=== PATIENT | male | born 1955 | race Caucasian/White ===

== ENCOUNTER 2017-01-09 09:14 | Emergency (ER) | payer SELFPAY ==
[~2017-01-09] VITALS: Ht 185.4 cm; Wt 72.6 kg
[2017-01-09 09:41] VITALS: BP 132/90
[2017-01-09] MEDS ORDERED: TETANUS-DIPTH-ACEL PERTUSSIS 0.5ML SYRG IM ONE (10:30)
[2017-01-09] MEDS ORDERED: NEOMYCIN-BACITRACIN-POLYM UNITDOSE PKG TOP OINT TOP ONE (10:30)
== END 2017-01-09 10:41 | disposition home or self-care (01) ==
LOC: ER 09:14
DX: S60.311A Abrasion of right thumb, initial encounter (principal); L08.9 Local infection of the skin and subcutaneous tissue, unspecified; X58.XXXA Exposure to other specified factors, initial encounter; Y93.89 Activity, other specified; Y92.89 Other specified places as the place of occurrence of the external cause; Y99.0 Civilian activity done for income or pay
CPT/HCPCS: 90471; 90715

== ENCOUNTER 2017-01-30 13:05 | Emergency (ER) | payer MEDICAID ==
[~2017-01-30] VITALS: Ht 185.4 cm; Wt 77.1 kg
[2017-01-30 13:16] VITALS: BP 106/58
[2017-01-30] MEDS ORDERED: cefTRIAXone SOD 1,000 MG VL IM ONE (15:30)
[2017-01-30] MEDS ORDERED: KETOROLAC TROMETH 60MG/2ML VIAL IM ONE (15:30)
[2017-01-30] MEDS ORDERED: SILVER SULFADIAZINE 1 % TOPICAL CREAM 50GM TOP ONE (15:30)
[2017-01-30] MEDS ORDERED: LIDOCAINE 2%HCL (LOCAL ANESTH.) INJ 20ML MDV ONE (15:37)
== END 2017-01-30 16:39 | disposition home or self-care (01) ==
LOC: ER 13:05
DX: T23.251A Burn of second degree of right palm, initial encounter (principal); L02.415 Cutaneous abscess of right lower limb; X12.XXXA Contact with other hot fluids, initial encounter; Y93.89 Activity, other specified; Y92.89 Other specified places as the place of occurrence of the external cause; Y99.8 Other external cause status
CPT/HCPCS: 10060; 16020; 73590; 96372; 99284; J0696; J1885

== ENCOUNTER 2017-02-02 13:46 | Emergency (ER) | payer MEDICAID ==
[~2017-02-02] VITALS: Ht 185.4 cm; Wt 77.1 kg
[2017-02-02 14:57] VITALS: BP 128/74
[2017-02-02] MEDS ORDERED: cefTRIAXone SOD 1,000 MG VL IM ONE (15:00)
== END 2017-02-02 15:16 | disposition home or self-care (01) ==
LOC: ER 13:50
DX: T23.101D Burn of first degree of right hand, unspecified site, subsequent encounter (principal); X58.XXXD Exposure to other specified factors, subsequent encounter
CPT/HCPCS: 96372; 99283; J0696

== ENCOUNTER 2017-02-04 13:14 | Emergency (ER) | payer MEDICAID ==
[~2017-02-04] VITALS: Ht 185.4 cm; Wt 77.1 kg
[2017-02-04 14:21] VITALS: BP 124/82
== END 2017-02-04 14:39 | disposition home or self-care (01) ==
LOC: ER 13:14
DX: T23.201D Burn of second degree of right hand, unspecified site, subsequent encounter (principal)

== ENCOUNTER 2017-05-29 09:45 | Emergency (ER) | payer SELFPAY ==
[2017-05-29 10:41] VITALS: BP 136/88
== END 2017-05-29 11:37 | disposition home or self-care (01) ==
LOC: ER 09:45
DX: L03.115 Cellulitis of right lower limb (principal); F17.210 Nicotine dependence, cigarettes, uncomplicated

== ENCOUNTER 2018-05-01 15:40 | Emergency (ER) | payer SELFPAY ==
[~2018-05-01] VITALS: Ht 185.4 cm; Wt 72.6 kg
[2018-05-01 16:21] VITALS: BP 127/71
[2018-05-01] MEDS ORDERED: KETOROLAC TROMETH 60MG/2ML VIAL IM ONE (17:00)
== END 2018-05-01 17:32 | disposition home or self-care (01) ==
LOC: ER 15:46
DX: S83.91XA Sprain of unspecified site of right knee, initial encounter (principal); F17.210 Nicotine dependence, cigarettes, uncomplicated; F12.10 Cannabis abuse, uncomplicated; W10.8XXA Fall (on) (from) other stairs and steps, initial encounter; Y93.01 Activity, walking, marching and hiking; Y92.811 Bus as the place of occurrence of the external cause; Y99.8 Other external cause status
CPT/HCPCS: 73562; 96372; 99283; J1885

== ENCOUNTER 2018-12-16 15:34 | Emergency (ER) | payer SELFPAY ==
[~2018-12-16] VITALS: Ht 185.4 cm; Wt 74.8 kg
[2018-12-16 16:35] VITALS: BP 129/81
== END 2018-12-16 19:29 | disposition left against medical advice (07) ==
LOC: ER 15:50
DX: S60.551A Superficial foreign body of right hand, initial encounter (principal); Z53.21 Procedure and treatment not carried out due to patient leaving prior to being seen by health care provider; X58.XXXA Exposure to other specified factors, initial encounter; Y93.89 Activity, other specified; Y99.8 Other external cause status; Y92.89 Other specified places as the place of occurrence of the external cause

== ENCOUNTER 2018-12-17 14:34 | Emergency (ER) | payer SELFPAY ==
[~2018-12-17] VITALS: Ht 182.9 cm; Wt 77.1 kg
[2018-12-17 15:06] VITALS: BP 142/85
[2018-12-17] MEDS ORDERED: TETANUS-DIPTH-ACEL PERTUSSIS 0.5ML SYRG IM ONE (15:45)
== END 2018-12-17 16:00 | disposition home or self-care (01) ==
LOC: ER 14:35
DX: S61.232A Puncture wound without foreign body of right middle finger without damage to nail, initial encounter (principal); F17.210 Nicotine dependence, cigarettes, uncomplicated; F12.10 Cannabis abuse, uncomplicated; X58.XXXA Exposure to other specified factors, initial encounter; Y93.89 Activity, other specified; Y99.8 Other external cause status; Y92.89 Other specified places as the place of occurrence of the external cause
CPT/HCPCS: 73140; 90471; 90715

== ENCOUNTER 2019-03-18 13:38 | Emergency (ER) | payer SELFPAY ==
[~2019-03-18] VITALS: Ht 185.4 cm; Wt 74.8 kg
[2019-03-18 18:25] LABS: Basophils # (auto) 0.1 uL; Basophils % (auto) 1.5 % (0.0-2.0); Eosinophils # (auto) 0.3 uL; Eosinophils % (auto) 3.9 % (0.0-7.0); Hematocrit 45.8 % (41.0-53.0); Hemoglobin 15.5 g/dL (13.5-17.5); Lymphocytes # (auto) 1.7 uL; Mean Corpuscular Hemoglobin 34.8 pg (28.0-32.0); Mean Corpuscular Hgb Conc. 33.8 g/dL (32.0-36.0); Mean Corpuscular Volume 103.2 fL (80.0-100.0); Monocytes # (auto) 0.6 uL; Monocytes % (auto) 8.4 % (0.0-12.0); Neutrophils # (auto) 4.1 uL; Neutrophils % (auto) 61.2 % (37.0-80.0); Nucleated Red Blood Cells % 0.1 %; Platelet Count (auto) 219 10^3/uL (140-450); Red Blood Cells 4.44 10^6/uL (4.5-5.90); Red Cell Distribution Width 13.9 % (11.8-14.3); White Blood Cell 6.8 10^3/uL (4.4-10.8)
[2019-03-18 18:40] LABS: Albumin 3.4 g/dL (3.4-5.0); BUN/Creatinine Ratio 13.1; Calcium 8.5 mg/dL (8.5-10.1)
[2019-03-18 18:43] LABS: Bilirubin, Total 0.4 mg/dL (0.2-1.0); Total Protein 7.4 g/dL (6.4-8.2)
[2019-03-18 19:20] VITALS: BP 122/83
[2019-03-18] MEDS ORDERED: DexAMETHasone SOD PHOS 10MG/1ML VIAL INJ IM ONE (19:30)
[2019-03-18] MEDS ORDERED: cefTRIAXone SOD 1,000 MG VL IM ONE (19:30)
[2019-03-18] MEDS ORDERED: LIDOCAINE 1% HCL (LOCAL ANESTH.) INJ 20ML MDV IJ ONE (19:30)
== END 2019-03-18 20:13 | disposition home or self-care (01) ==
LOC: ER 13:38
DX: S60.551A Superficial foreign body of right hand, initial encounter (principal); L02.511 Cutaneous abscess of right hand; F17.210 Nicotine dependence, cigarettes, uncomplicated; F12.10 Cannabis abuse, uncomplicated; X58.XXXA Exposure to other specified factors, initial encounter; Y93.89 Activity, other specified; Y99.8 Other external cause status; Y92.89 Other specified places as the place of occurrence of the external cause
CPT/HCPCS: 10060; 36415; 73130; 80053; 85025; 96372; 99284; J0696; J1100; J2001